=== PATIENT | female | born 1990 | race Two or more races ===

== ENCOUNTER 2016-09-22 00:44 | Emergency (ER) | payer MEDICAID ==
[2016-09-22 00:53] VITALS: RESP 16; TEMP 98.2
--- NOTE | 2016-09-22 02:44 | EDPHY ---
H & P Stated Complaint: cyst on tailbone x1 week Time Seen by Provider: 09/22/16 01:45 HPI/ROS: Chief Complaint: Cyst on tailbone HPI: 26-year-old woman who is 26 weeks presenting with assist has been worsening on her tailbone for the last week. She has a history of pilonidal cyst drainage in the past. Denies any fevers or chills. No numbness or weakness. No nausea or vomiting. ROS: 10 point Review of Systems is negative except as noted in the HPI. PMH: Pilonidal cyst Social History: No smoking, no alcohol, no recreational drug use Family History: non-contributory Physical Exam: Gen: Awake, Alert, No Distress HEENT: Nose: no rhinorrhea Eyes: PERRLA, EOMI Mouth: Moist mucosa Neck: Supple, no JVD Back: There is fluctuance and pointing in right pilonidal region which is tender to the touch Ext: no edema, non-tender Skin: no rash Neuro: CN II-XII intact, Sensation grossly intact, Strength 5/5 in bilateral upper and lower extremities - Personal History LMP (Females 10-55): EDC: 12/28/16 Current Tetanus/Diphtheria Vaccine: Unsure Current Tetanus Diphtheria and Acellular Pertussis (TDAP): Unsure - Medical/Surgical History Hx Asthma: No Hx Chronic Respiratory Disease: No Hx Diabetes: No Hx Cardiac Disease: No Hx Renal Disease: No Hx Cirrhosis: No Hx Alcoholism: No Hx HIV/AIDS: No Hx Splenectomy or Spleen Trauma: No Other PMH: 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 The patient's abscess was located on the pilonidal region. I obtained verbal consent from the patient to drain the abscess who was informed about the possibility of bleeding and pain. The abscess was incised with 15 blade and a large amount of purulent drainage was expressed. I irrigated the wound and placed some packing. The patient tolerated the procedure well. The procedure was performed by myself. Departure - Departure Disposition: Home, Routine, Self-Care Clinical Impression: Abscess Condition: Good Instructions: Abscess (ED), Pilonidal Cyst (ED) Additional Instructions: Packing needs to be removed in 2 days. Follow up with your doctor for packing removal. Return to the emergency depart for increasing pain, fevers, chills, or any other concerns. Referrals: [facility] [Other] - As per Instructions
[2016-09-22 03:07] VITALS: BP 110/70; PULSE 99; O2SAT 91
== END 2016-09-22 03:06 | disposition home or self-care (01) ==
PROC: 0J990ZZ Drainage of Buttock Subcutaneous Tissue and Fascia, Open Approach (ICD-10-PCS; principal; 2016-09-22)
DX: O99.712 Diseases of the skin and subcutaneous tissue complicating pregnancy, second trimester (principal); L05.01 Pilonidal cyst with abscess; Z3A.26 26 weeks gestation of pregnancy